=== PATIENT | male | born 1960 | race American Indian/Alaskan Native ===

== ENCOUNTER 2016-10-12 00:08 | Emergency (ER) | payer MEDICARE, OTHER ==
[2016-10-12 02:38] LABS: Hematocrit 31.5 % (35.5-45.6); Hemoglobin 10.2 gm/dl (11.8-15.2); Mean Corpuscular HGB Conc 32 % (32-34); Mean Corpuscular Hemoglobin 26 pg (28-32); Mean Corpuscular Volume 81 fl (84-94); Platelet Count 388 K/mm3 (140-440); Red Blood Count 3.87 M/mm3 (3.65-5.03); Red Cell Distribution Width 15.6 % (13.2-15.2); White Blood Count 6.9 K/mm3 (4.5-11.0)
[2016-10-12 03:07] LABS: Anion Gap 12 mmol/L; Blood Urea Nitrogen 18 mg/dL (9-20); Calcium 8.9 mg/dL (8.4-10.2); Carbon Dioxide 33 mmol/L (22-30); Chloride 97.3 mmol/L (98-107); Glucose 92 mg/dL (75-100); Potassium 3.6 mmol/L (3.6-5.0); Sodium 139 mmol/L (137-145)
[2016-10-12 03:37] LABS: Bilirubin,Urine Negative (Negative); Blood,Urine Negative (Negative); Ketones,Urine Negative (Negative); Leukocyte Esterase,Urine Negative (Negative); Nitrite,Urine Negative (Negative); Urobilinogen,Urine > 0.2 mg/dL (<2.0)
[2016-10-12 03:38] LABS: Mucus,Urine 2+ /HPF
[2016-10-12 04:13] VITALS: BP 125/79
[2016-10-12 05:09] LABS: Anisocytosis Few; Basophils % (Manual) 0 % (0.0-1.8); Blastocytes % (Manual) 0 %; Diff Status Complete
== END 2016-10-12 02:30 | disposition left against medical advice (07) ==
LOC: ED 00:08
DX: R60.9 Edema, unspecified (principal); Z53.21 Procedure and treatment not carried out due to patient leaving prior to being seen by health care provider
CPT/HCPCS: 36415; 80048; 81001; 85007; 85025

== ENCOUNTER 2016-10-12 19:00 | Emergency (ER) | payer MEDICARE, OTHER | END 2016-10-12 20:30 | disposition left against medical advice (07) | LOC: ED 19:00 | DX: Z53.21 Procedure and treatment not carried out due to patient leaving prior to being seen by health care provider (principal) ==

== ENCOUNTER 2016-10-13 07:51 | Emergency (ER) | payer MEDICARE, OTHER ==
[2016-10-13 08:38] LABS: Basophils % (Auto) 0.3 % (0.0-1.8); Hematocrit 32.5 % (35.5-45.6); Hemoglobin 10.9 gm/dl (11.8-15.2); Mean Corpuscular HGB Conc 34 % (32-34); Mean Corpuscular Hemoglobin 27 pg (28-32); Mean Corpuscular Volume 81 fl (84-94); Platelet Count 405 K/mm3 (140-440); Red Blood Count 4.02 M/mm3 (3.65-5.03); Red Cell Distribution Width 15.4 % (13.2-15.2); White Blood Count 5.9 K/mm3 (4.5-11.0)
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
[2016-10-13 08:55] LABS: Blood Urea Nitrogen 10 mg/dL (9-20); Calcium 8.8 mg/dL (8.4-10.2); Carbon Dioxide 24 mmol/L (22-30); Chloride 99.8 mmol/L (98-107); Glucose 114 mg/dL (75-100); Potassium 3.5 mmol/L (3.6-5.0); Sodium 139 mmol/L (137-145)
[2016-10-13 09:18] LABS: Anion Gap 19 mmol/L
[2016-10-13 10:54] LABS: Urine Drugs of Abuse Note Disclamer
[2016-10-13 11:08] LABS: Bilirubin,Urine NEG (Negative); Blood,Urine SM (Negative); Ketones,Urine TR mg/dL (Negative); Leukocyte Esterase,Urine NEG (Negative); Nitrite,Urine NEG (Negative); Protein,Urine <15 mg/dL mg/dL (Negative); Urobilinogen,Urine < 2.0 mg/dL (<2.0)
[2016-10-13 11:33] LABS: WBC,Urine < 1.0 /HPF (0.0-6.0)
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
[2016-10-14] MEDS ORDERED: GEODON IM ONE (07:42)
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
[2016-10-14] MEDS: RisperDAL PO SCH (21:54)
[2016-10-15] MEDS ORDERED: FLEXERIL ONE (10:10)
[2016-10-15] MEDS ORDERED: FLEXERIL PO ONE (10:14)
[2016-10-15] MEDS ORDERED: LASIX ONE (12:54)
[2016-10-15] MEDS ORDERED: LASIX PO ONE (12:58)
--- NOTE | 2016-10-15 17:22 | Progress Note ---
Subjective - Reason for Consult Consult date: 10/15/16 Reason for consult: Psychiatry Follow-up - Chief Complaint Chief complaint: "It's the buses" 56-year-old male in the emergency department. Today patient is calm during assessment. He wanted to talk about the buses he saw pass his room. He stated that these buses is his ride home from the hospital. I had to redirect the patient multiple times during the conversation. He denies SI/HI's when asked. He was observed eating his breakfast during our conversation. Also, patient has 3+ pitting edema (bilateral LEs). He could not tell me about the edema, other than his legs hurt. Patient is a poor historian. Mental Status Exam - Vital signs Last Vital Signs Temp 98.3 F 10/15/16 09:30 Pulse 98 H 10/15/16 09:30 Resp 16 10/15/16 09:30 BP 155/85 10/15/16 09:30 Pulse Ox 100 10/15/16 09:30 - Exam Narrative exam: MSE: Appearance: calm Behavior: regular eye contact Speech: regular rate and tone Mood: "okay" Affect: labile Thought Process: tangential Thought Content: denies SI/HI's and AVH's, delusional, disorganize Motor Activity: lying in bed Cognition: A/Ox 2 Insight: limited Judgment: limited Assessment and Plan Impression: Psychosis is likely, patient is disorganized, delusional with lability mood. Substances do not appear to be a factor in this case but it is possible. Today patient is calm during assessment. Recommendation/Plan: Continue 1013 with placement to inpatient psy services once determined medically clear. Continue Risperdal 0.5 mg PO HS for mood/ psychotic symptoms. The patient has 3+ pitting edema (bilateral LEs), it's undetermined if this patient is medically stable for transfer to inpatient psy services.
[2016-10-15] MEDS: RisperDAL PO SCH (22:25)
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
[2016-10-16] MEDS: RisperDAL PO SCH (22:08)
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
[2016-10-17] MEDS: RisperDAL PO SCH (21:55)
--- NOTE | 2016-10-18 14:05 | Progress Note ---
Subjective - Reason for Consult Consult date: 10/18/16 Reason for consult: Psychiatry Follow-up - Chief Complaint Chief complaint: "I should have left yesterday" 56-year-old male in the emergency department. Today patient is calm and cooperative. He stated that he is homeless, but have money to get himself a hotel. He stated that he uses the [facility] for his healthcare. He denies lower extremity pain. He denies SI/HI's, AVH's, and depression symptoms. He denies any suicidal attempts recently or in the past. Mental Status Exam - Vital signs Last Vital Signs Temp 98.2 F 10/17/16 19:55 Pulse 72 10/17/16 19:55 Resp 18 10/18/16 12:31 BP 163/79 10/17/16 19:55 Pulse Ox 18 L 10/18/16 12:31 - Exam Narrative exam: MSE: Appearance: calm Behavior: regular eye contact Speech: regular rate and tone Mood: "well" Affect: congruent to mood Thought Process: linear Thought Content: denies SI/HI's and AVH's Motor Activity: lying in bed Cognition: A/Ox 3 Insight: fair Judgment: fair Impression: Psychosis is likely, patient is disorganized, delusional with lability mood. Substances do not appear to be a factor in this case but it is possible. Today patient is calm, but delusional during assessment. Recommendation/Plan: Continue 1013 with placement to inpatient psy services once determined medically clear. Modify Risperdal to 1 mg Po HS for for mood/ psychotic symptoms. Patient's LE Edema (1+). If ER recommend outpatient follow- up and the patient is appropriate for discharge, he can be transferred to inpatient psy services. Assessment and Plan Impression: Today patient is calm and cooperative. He denies SI/HI's and AVH's. Patient is no threat to self or others. Recommendation/Plan: Rescind 1013 per yesterday psy note. Continue Risperdal 1 mg PO HS. Patient can can [facility].
[2016-10-18 16:37] VITALS: BP 126/86
== END 2016-10-18 18:47 | disposition home or self-care (01) ==
LOC: EEVIPCON 07:51 → ED 07:51
DX: F23 Brief psychotic disorder (principal); I10 Essential (primary) hypertension; E11.9 Type 2 diabetes mellitus without complications; E78.5 Hyperlipidemia, unspecified
CPT/HCPCS: 36415; 80048; 80307; 81001; 85025; 96372; 99284; G0480; J3486; 80320

== ENCOUNTER 2016-10-28 23:52 | Emergency (ER) | payer MEDICARE, OTHER | END 2016-10-28 23:53 | disposition left against medical advice (07) | LOC: ED 23:52 | DX: M79.1 Myalgia (principal); Z53.21 Procedure and treatment not carried out due to patient leaving prior to being seen by health care provider ==

== ENCOUNTER 2018-06-05 17:45 | Inpatient (IN) | payer MEDICARE, OTHER ==
--- NOTE | 2018-06-05 18:19 | Emergency Department Report ---
Blank Doc - Documentation Documentation: This is a 57-year-old male that presents with stiffness and weakness. Patient is also c/o of generalized pain as well. Patient stated is out of his metformin for 2 weeks. This initial assessment/diagnostic orders/clinical plan/treatment(s) is/are subject to change based on patient's health status, clinical progression and re- assessment by fellow clinical providers in the ED. Further treatment and workup at subsequent clinical providers discretion. Patient/guardians urged not to elope from the ED as their condition may be serious if not clinically assessed and managed. Initial orders include: 1- Patient sent to MAIN ED for further evaluation and treatment 2- Labs 3- UA
[2018-06-05 18:53] LABS: Basophils % (Auto) 0.5 % (0.0-1.8); Eosinophils # (Auto) 0.1 K/mm3 (0.0-0.4); Eosinophils % (Auto) 1.6 % (0.0-4.3); Hematocrit 44.7 % (35.5-45.6); Hemoglobin 14.7 gm/dl (11.8-15.2); Lymphocytes # (Auto) 2.5 K/mm3 (1.2-5.4); Lymphocytes % (Auto) 28.6 % (13.4-35.0); Mean Corpuscular HGB Conc 33 % (32-34); Mean Corpuscular Volume 86 fl (84-94); Monocytes # (Auto) 0.7 K/mm3 (0.0-0.8); Monocytes % (Auto) 8.1 % (0.0-7.3); Platelet Count 358 K/mm3 (140-440); Red Cell Distribution Width 13.6 % (13.2-15.2)
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
[2018-06-05 19:25] LABS: Alanine Aminotransferase 9 units/L (7-56); Albumin 4.2 g/dL (3.9-5); BUN/Creatinine Ratio 19; Blood Urea Nitrogen 15 mg/dL (9-20); Calcium 9.4 mg/dL (8.4-10.2); Hemolysis Index 6
[2018-06-05] MEDS ORDERED: D50W (25GM) Syringe IV PRN (19:39)
[2018-06-05] MEDS ORDERED: NACL 0.9% 1000 ML 1,000 ML IV ONE (19:39)
[2018-06-05 19:45] LABS: Bilirubin,Urine NEG (Negative); Blood,Urine NEG (Negative); Color,Urine Straw (Yellow); Protein,Urine <15 mg/dL mg/dL (Negative); Urobilinogen,Urine < 2.0 mg/dL (<2.0)
[2018-06-05] MEDS ORDERED: MAXIPIME/NS 2 GM/100 ML 2 GM/100 ML BAG IV ONE (19:54)
[2018-06-05] MEDS ORDERED: D5W/0.45% NACL/KCL 20 MEQ 20 MEQ/1,000 ML BAG IV SCH (20:00)
[2018-06-05] MEDS ORDERED: HumuLIN R 100 UNITS in NACL 0.9% 99 ML IV SCH (20:30)
[2018-06-05 20:31] LABS: Creatine Kinase MB 4.5 ng/mL (0.0-4.0)
[2018-06-05 21:50] LABS: BUN/Creatinine Ratio 23; Blood Urea Nitrogen 14 mg/dL (9-20); Calcium 8.5 mg/dL (8.4-10.2); Hemolysis Index 4
[2018-06-05] MEDS ORDERED: NACL 0.9% 1000 ML 1,000 ML IV SCH ×2 (23:00→23:45)
[2018-06-05] MEDS ORDERED: D5NS 1,000 ML IV SCH (23:45)
[2018-06-05 23:57] LABS: BUN/Creatinine Ratio 20; Blood Urea Nitrogen 14 mg/dL (9-20); Calcium 8.6 mg/dL (8.4-10.2); Hemolysis Index 13
[2018-06-06 01:44] LABS: BUN/Creatinine Ratio 23; Blood Urea Nitrogen 14 mg/dL (9-20); Calcium 8.6 mg/dL (8.4-10.2); Hemolysis Index 6
[2018-06-06 05:09] LABS: BUN/Creatinine Ratio 23; Blood Urea Nitrogen 14 mg/dL (9-20); Calcium 8.6 mg/dL (8.4-10.2); Hemolysis Index 12
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
[2018-06-06] MEDS: HumaLOG SUB-Q SCH ×4 (10:25→23:58)
[2018-06-06] MEDS: NACL 0.9% 1000 ML 1,000 ML IV SCH (10:25)
--- NOTE | 2018-06-06 11:36 | Consultation ---
History of Present Illness Consult date: 06/06/18 Requesting physician: AMMON MALAVE III Reason for consult: other (DKA) History of present illness: PULMONARY/CCM CONSULT NOTE (Full dictation # [id number]) Please see dictated notes for full details Medications and Allergies Allergies Allergy/AdvReac Type Severity Reaction Status Date / Time No Known Allergies Allergy Verified 06/05/18 17:46 Home Medications Medication Instructions Recorded Confirmed Last Taken Type risperiDONE [RisperDAL] 1 mg PO QHS #60 tablet 10/18/16 Unknown Rx Active Meds: Active Medications Dextrose (D50w (25gm) Syringe) 0 ml IV ONCE PRN PRN Reason: Hypoglycemia Dextrose/Sodium Chloride (D5ns) 1,000 mls @ 125 mls/hr IV DIRECT SAUNDRA Last Infusion: 06/06/18 10:26 Dose: 0 mls/hr Documented by: Sodium Chloride (Nacl 0.9% 1000 Ml) 1,000 mls @ 75 mls/hr IV DIRECT SAUNDRA Last Admin: 06/06/18 10:25 Dose: 75 mls/hr Documented by: Insulin Human Lispro (Humalog) 0 unit SUB-Q Q4HR SAUNDRA; Protocol Last Admin: 06/06/18 10:25 Dose: Not Given Documented by: Physical Examination Vital signs: Vital Signs Temp Pulse Resp BP Pulse Ox 98.5 F 103 H 16 109/77 97 06/05/18 18:17 06/05/18 18:17 06/05/18 18:17 06/05/18 18:17 06/05/18 18:17 Results - Laboratory Findings CBC and BMP: 06/05/18 18:36 06/06/18 04:11 Abnormal lab findings: Abnormal Labs 06/05/18 06/05/18 06/05/18 18:31 18:36 18:36 RBC 5.20 H [place] % (Auto) 8.1 H VBG pH Sodium 132 L Potassium Chloride 92.8 L Carbon Dioxide 20 L Creatinine Glucose 414 H POC Glucose 348 H Alkaline Phosphatase 185 H CK-MB (CK-2) Ur Specific [place] Urine WBC (Auto) 06/05/18 06/05/18 06/05/18 18:36 19:26 19:53 RBC [place] % (Auto) VBG pH 7.281 L Sodium Potassium Chloride Carbon Dioxide Creatinine Glucose POC Glucose Alkaline Phosphatase CK-MB (CK-2) 4.5 H Ur Specific [place] 1.031 H Urine WBC (Auto) 12.0 H 06/05/18 06/05/18 06/05/18 21:26 21:56 23:07 RBC [place] % (Auto) VBG pH Sodium 134 L Potassium Chloride 97.3 L Carbon Dioxide 16 L Creatinine 0.6 L Glucose 355 H POC Glucose 314 H 315 H Alkaline Phosphatase CK-MB (CK-2) Ur Specific [place] Urine WBC (Auto) 06/05/18 06/05/18 06/06/18 23:26 23:51 00:57 RBC [place] % (Auto) VBG pH Sodium 135 L Potassium Chloride Carbon Dioxide 20 L Creatinine 0.7 L Glucose 322 H POC Glucose 437 H 262 H Alkaline Phosphatase CK-MB (CK-2) Ur Specific [place] Urine WBC (Auto) 06/06/18 06/06/18 06/06/18 01:14 02:19 03:01 RBC [place] % (Auto) VBG pH Sodium Potassium 3.1 L Chloride Carbon Dioxide 21 L Creatinine 0.6 L Glucose 219 H POC Glucose 139 H 112 H Alkaline Phosphatase CK-MB (CK-2) Ur Specific [place] Urine WBC (Auto) 06/06/18 06/06/18 06/06/18 04:10 04:11 05:00 RBC [place] % (Auto) VBG pH Sodium Potassium 3.4 L Chloride Carbon Dioxide Creatinine 0.6 L Glucose 115 H POC Glucose 161 H 133 H Alkaline Phosphatase CK-MB (CK-2) Ur Specific [place] Urine WBC (Auto) 06/06/18 06/06/18 06/06/18 06:07 06:44 08:20 RBC [place] % (Auto) VBG pH Sodium Potassium Chloride Carbon Dioxide Creatinine Glucose POC Glucose 115 H 118 H 132 H Alkaline Phosphatase CK-MB (CK-2) Ur Specific [place] Urine WBC (Auto) 06/06/18 06/06/18 09:16 10:26 RBC [place] % (Auto) VBG pH Sodium Potassium Chloride Carbon Dioxide Creatinine Glucose POC Glucose 152 H 116 H Alkaline Phosphatase CK-MB (CK-2) Ur Specific [place] Urine WBC (Auto)
[2018-06-06 14:17] LABS: BUN/Creatinine Ratio 19; Blood Urea Nitrogen 13 mg/dL (9-20); Calcium 8.2 mg/dL (8.4-10.2); Hemolysis Index 7
[2018-06-06] MEDS ORDERED: HumaLOG SUB-Q ONE (14:27)
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
[2018-06-06 20:04] LABS: BUN/Creatinine Ratio 18; Blood Urea Nitrogen 11 mg/dL (9-20); Calcium 8.2 mg/dL (8.4-10.2); Hemolysis Index 7
[2018-06-07] MEDS: NACL 0.9% 1000 ML 1,000 ML IV SCH ×2 (00:02→17:35)
[2018-06-07] MEDS: HumaLOG SUB-Q SCH ×4 (04:05→13:56)
[2018-06-07 05:56] LABS: BUN/Creatinine Ratio 20; Blood Urea Nitrogen 10 mg/dL (9-20); Calcium 8.2 mg/dL (8.4-10.2); Hemolysis Index 4
[2018-06-07] MEDS ORDERED: IBUPROFEN PO PRN (09:53)
--- NOTE | 2018-06-07 12:57 | Progress Note ---
Assessment and Plan - Patient Problems (1) DKA (diabetic ketoacidoses) Current Visit: Yes Status: Acute Qualifiers: Diabetes mellitus type: type 2 Diabetes mellitus complication detail: without coma Qualified Code(s): E11.10 - Type 2 diabetes mellitus with ketoacidosis without coma Plan to address problem: Stop insulin drip ACcucheks q4 Transfer to [facility] High dose s/s coverage Diabetic education Counselled about need for Insulin bid at home [facility] needs a local [facility] (2) Hypokalemia Current Visit: Yes Status: Acute Plan to address problem: Supplemented (3) DVT prophylaxis Current Visit: Yes Status: Acute Plan to address problem: On Lovenox and GI prophylaxis Subjective Date of service: 06/07/18 Principal diagnosis: DKA Interval history: Glucose levels better Objective - Constitutional Vitals: Vital Signs - 12hr 06/07/18 06/07/18 06/07/18 01:00 01:10 01:20 Temperature Pulse Rate 89 90 92 H Pulse Rate [ From Monitor] Respiratory 15 21 14 Rate Blood Pressure 107/66 102/67 107/66 O2 Sat by Pulse 95 95 96 Oximetry 06/07/18 06/07/18 06/07/18 01:30 01:40 01:50 Temperature Pulse Rate 92 H 91 H 88 Pulse Rate [ From Monitor] Respiratory 20 19 17 Rate Blood Pressure 107/66 107/66 107/66 O2 Sat by Pulse 95 97 95 Oximetry 06/07/18 06/07/18 06/07/18 02:00 02:10 02:20 Temperature Pulse Rate 89 90 88 Pulse Rate [ From Monitor] Respiratory 15 20 18 Rate Blood Pressure 88/63 107/66 107/66 O2 Sat by Pulse 96 96 96 Oximetry 06/07/18 06/07/18 06/07/18 02:30 02:40 02:50 Temperature Pulse Rate 85 85 87 Pulse Rate [ From Monitor] Respiratory 14 21 18 Rate Blood Pressure 107/66 107/66 107/66 O2 Sat by Pulse 96 97 95 Oximetry 06/07/18 06/07/18 06/07/18 03:00 03:10 03:20 Temperature Pulse Rate 87 86 90 Pulse Rate [ From Monitor] Respiratory 18 13 17 Rate Blood Pressure 100/66 96/64 96/64 O2 Sat by Pulse 95 95 95 Oximetry 06/07/18 06/07/18 06/07/18 03:30 03:40 03:50 Temperature Pulse Rate 85 87 82 Pulse Rate [ From Monitor] Respiratory 19 20 14 Rate Blood Pressure 96/64 96/64 96/64 O2 Sat by Pulse 94 95 97 Oximetry 06/07/18 06/07/18 06/07/18 04:00 04:10 04:20 Temperature 98.3 F Pulse Rate 86 87 87 Pulse Rate [ 88 From Monitor] Respiratory 18 15 20 Rate Blood Pressure 96/66 96/66 96/66 O2 Sat by Pulse 94 95 96 Oximetry 06/07/18 06/07/18 06/07/18 04:30 04:40 04:50 Temperature Pulse Rate 88 86 87 Pulse Rate [ From Monitor] Respiratory 17 20 21 Rate Blood Pressure 96/66 96/66 96/66 O2 Sat by Pulse 94 95 95 Oximetry 06/07/18 06/07/18 06/07/18 05:00 05:10 05:20 Temperature Pulse Rate 84 89 90 Pulse Rate [ From Monitor] Respiratory 13 13 11 L Rate Blood Pressure 97/62 97/62 96/66 O2 Sat by Pulse 94 97 97 Oximetry 06/07/18 06/07/18 06/07/18 05:30 05:40 05:50 Temperature Pulse Rate 86 86 85 Pulse Rate [ From Monitor] Respiratory 16 17 14 Rate Blood Pressure 96/66 96/66 96/66 O2 Sat by Pulse 95 96 97 Oximetry 06/07/18 06/07/18 06/07/18 06:00 06:10 06:20 Temperature Pulse Rate 83 81 83 Pulse Rate [ From Monitor] Respiratory 16 17 18 Rate Blood Pressure 105/67 105/67 105/67 O2 Sat by Pulse 96 96 96 Oximetry 06/07/18 06/07/18 06/07/18 06:30 06:40 06:50 Temperature Pulse Rate 81 81 89 Pulse Rate [ From Monitor] Respiratory 16 17 16 Rate Blood Pressure 105/67 105/67 105/67 O2 Sat by Pulse 96 96 97 Oximetry 06/07/18 06/07/18 06/07/18 07:00 07:10 07:20 Temperature Pulse Rate 86 84 83 Pulse Rate [ From Monitor] Respiratory 19 13 14 Rate Blood Pressure 97/64 97/64 97/64 O2 Sat by Pulse 94 95 96 Oximetry 06/07/18 06/07/18 06/07/18 07:30 07:40 07:50 Temperature Pulse Rate 82 85 87 Pulse Rate [ From Monitor] Respiratory 16 19 16 Rate Blood Pressure 97/64 97/64 97/64 O2 Sat by Pulse 96 95 96 Oximetry 06/07/18 06/07/18 06/07/18 08:00 08:10 08:20 Temperature 97.2 F L Pulse Rate 83 78 81 Pulse Rate [ 88 From Monitor] Respiratory 15 15 13 Rate Blood Pressure 99/61 99/61 99/61 O2 Sat by Pulse 93 95 95 Oximetry 06/07/18 06/07/18 06/07/18 08:30 08:40 08:50 Temperature Pulse Rate 105 H 86 86 Pulse Rate [ From Monitor] Respiratory 11 L 17 17 Rate Blood Pressure 99/61 99/61 99/61 O2 Sat by Pulse 96 94 94 Oximetry 06/07/18 06/07/18 06/07/18 09:00 09:10 09:20 Temperature Pulse Rate 89 90 89 Pulse Rate [ From Monitor] Respiratory 19 19 16 Rate Blood Pressure 89/56 89/56 89/56 O2 Sat by Pulse 93 95 96 Oximetry 06/07/18 06/07/18 06/07/18 09:30 09:40 09:50 Temperature Pulse Rate 88 88 89 Pulse Rate [ From Monitor] Respiratory 19 15 16 Rate Blood Pressure 89/56 89/56 89/56 O2 Sat by Pulse 97 96 96 Oximetry General appearance: Present: no acute distress, well-nourished - EENT Eyes: PERRL, EOM intact ENT: hearing intact, clear oral mucosa Ears: bilateral: normal - Neck Neck: supple, normal ROM - Respiratory Respiratory effort: normal Respiratory: bilateral: CTA - Breasts Breasts: normal - Cardiovascular Heart rate: 78 Rhythm: regular Heart Sounds: Present: S1 & S2. Absent: gallop, rub Extremities: no ischemia, pulses intact, No edema, normal color, Full ROM - Gastrointestinal General gastrointestinal: Present: soft, non-tender, non-distended, normal bowel sounds - Genitourinary Male genitourinary: normal - Integumentary Integumentary: clear, warm, dry - Musculoskeletal Musculoskeletal: 1, strength equal bilaterally - Neurologic Neurologic: moves all extremities - Psychiatric Psychiatric: memory intact, appropriate mood/affect, intact judgment & insight - Labs CBC & Chem 7: 06/05/18 18:36 03/09/19 04:34 Labs: Abnormal lab results 06/06/18 06/06/18 06/06/18 Range/Units 13:23 14:19 16:30 Sodium (137-145) mmol/L Potassium (3.6-5.0) mmol/L Carbon Dioxide 21 L (22-30) mmol/L Creatinine 0.7 L (0.8-1.5) mg/dL Glucose 234 H (75-100) mg/dL POC Glucose 317 H 291 H (70-105) Calcium 8.2 L (8.4-10.2) mg/dL 06/06/18 06/06/18 06/07/18 Range/Units 19:10 22:17 01:37 Sodium 133 L (137-145) mmol/L Potassium (3.6-5.0) mmol/L Carbon Dioxide (22-30) mmol/L Creatinine 0.6 L (0.8-1.5) mg/dL Glucose 412 H (75-100) mg/dL POC Glucose 243 H 225 H (70-105) Calcium 8.2 L (8.4-10.2) mg/dL 06/07/18 06/07/18 06/07/18 Range/Units 04:34 07:17 10:08 Sodium (137-145) mmol/L Potassium 3.2 L (3.6-5.0) mmol/L Carbon Dioxide 21 L (22-30) mmol/L Creatinine 0.5 L (0.8-1.5) mg/dL Glucose 212 H (75-100) mg/dL POC Glucose 258 H 217 H (70-105) Calcium 8.2 L (8.4-10.2) mg/dL 06/07/18 Range/Units 12:17 Sodium (137-145) mmol/L Potassium (3.6-5.0) mmol/L Carbon Dioxide (22-30) mmol/L Creatinine (0.8-1.5) mg/dL Glucose (75-100) mg/dL POC Glucose 279 H (70-105) Calcium (8.4-10.2) mg/dL
[2018-06-07] MEDS ORDERED: K-DUR PO ONE (12:58)
--- NOTE | 2018-06-07 13:13 | Progress Note ---
Assessment and Plan - Patient Problems (1) DKA (diabetic ketoacidoses) Current Visit: Yes Status: Acute Qualifiers: Diabetes mellitus type: type 2 Diabetes mellitus complication detail: without coma Qualified Code(s): E11.10 - Type 2 diabetes mellitus with ketoacidosis without coma Plan to address problem: Stop insulin drip ACcucheks q4 Transfer to [facility] High dose s/s coverage Diabetic education Counselled about need for Insulin bid at home [facility] needs [facility] (2) Hypokalemia Current Visit: Yes Status: Acute Plan to address problem: Supplemented (3) DVT prophylaxis Current Visit: Yes Status: Acute Plan to address problem: On Lovenox and GI prophylaxis Subjective Date of service: 06/07/18 Principal diagnosis: DKA Interval history: Glucose levels better Objective - Constitutional Vitals: Vital Signs - 12hr 06/07/18 06/07/18 06/07/18 01:20 01:30 01:40 Temperature Pulse Rate 92 H 92 H 91 H Pulse Rate [ From Monitor] Respiratory 14 20 19 Rate Blood Pressure 107/66 107/66 107/66 O2 Sat by Pulse 96 95 97 Oximetry 06/07/18 06/07/18 06/07/18 01:50 02:00 02:10 Temperature Pulse Rate 88 89 90 Pulse Rate [ From Monitor] Respiratory 17 15 20 Rate Blood Pressure 107/66 88/63 107/66 O2 Sat by Pulse 95 96 96 Oximetry 06/07/18 06/07/18 06/07/18 02:20 02:30 02:40 Temperature Pulse Rate 88 85 85 Pulse Rate [ From Monitor] Respiratory 18 14 21 Rate Blood Pressure 107/66 107/66 107/66 O2 Sat by Pulse 96 96 97 Oximetry 06/07/18 06/07/18 06/07/18 02:50 03:00 03:10 Temperature Pulse Rate 87 87 86 Pulse Rate [ From Monitor] Respiratory 18 18 13 Rate Blood Pressure 107/66 100/66 96/64 O2 Sat by Pulse 95 95 95 Oximetry 06/07/18 06/07/18 06/07/18 03:20 03:30 03:40 Temperature Pulse Rate 90 85 87 Pulse Rate [ From Monitor] Respiratory 17 19 20 Rate Blood Pressure 96/64 96/64 96/64 O2 Sat by Pulse 95 94 95 Oximetry 06/07/18 06/07/18 06/07/18 03:50 04:00 04:10 Temperature 98.3 F Pulse Rate 82 86 87 Pulse Rate [ 88 From Monitor] Respiratory 14 18 15 Rate Blood Pressure 96/64 96/66 96/66 O2 Sat by Pulse 97 94 95 Oximetry 06/07/18 06/07/18 06/07/18 04:20 04:30 04:40 Temperature Pulse Rate 87 88 86 Pulse Rate [ From Monitor] Respiratory 20 17 20 Rate Blood Pressure 96/66 96/66 96/66 O2 Sat by Pulse 96 94 95 Oximetry 06/07/18 06/07/18 06/07/18 04:50 05:00 05:10 Temperature Pulse Rate 87 84 89 Pulse Rate [ From Monitor] Respiratory 21 13 13 Rate Blood Pressure 96/66 97/62 97/62 O2 Sat by Pulse 95 94 97 Oximetry 06/07/18 06/07/18 06/07/18 05:20 05:30 05:40 Temperature Pulse Rate 90 86 86 Pulse Rate [ From Monitor] Respiratory 11 L 16 17 Rate Blood Pressure 96/66 96/66 96/66 O2 Sat by Pulse 97 95 96 Oximetry 06/07/18 06/07/18 06/07/18 05:50 06:00 06:10 Temperature Pulse Rate 85 83 81 Pulse Rate [ From Monitor] Respiratory 14 16 17 Rate Blood Pressure 96/66 105/67 105/67 O2 Sat by Pulse 97 96 96 Oximetry 06/07/18 06/07/18 06/07/18 06:20 06:30 06:40 Temperature Pulse Rate 83 81 81 Pulse Rate [ From Monitor] Respiratory 18 16 17 Rate Blood Pressure 105/67 105/67 105/67 O2 Sat by Pulse 96 96 96 Oximetry 06/07/18 06/07/18 06/07/18 06:50 07:00 07:10 Temperature Pulse Rate 89 86 84 Pulse Rate [ From Monitor] Respiratory 16 19 13 Rate Blood Pressure 105/67 97/64 97/64 O2 Sat by Pulse 97 94 95 Oximetry 06/07/18 06/07/18 06/07/18 07:20 07:30 07:40 Temperature Pulse Rate 83 82 85 Pulse Rate [ From Monitor] Respiratory 14 16 19 Rate Blood Pressure 97/64 97/64 97/64 O2 Sat by Pulse 96 96 95 Oximetry 06/07/18 06/07/18 06/07/18 07:50 08:00 08:10 Temperature 97.2 F L Pulse Rate 87 83 78 Pulse Rate [ 88 From Monitor] Respiratory 16 15 15 Rate Blood Pressure 97/64 99/61 99/61 O2 Sat by Pulse 96 93 95 Oximetry 06/07/18 06/07/18 06/07/18 08:20 08:30 08:40 Temperature Pulse Rate 81 105 H 86 Pulse Rate [ From Monitor] Respiratory 13 11 L 17 Rate Blood Pressure 99/61 99/61 99/61 O2 Sat by Pulse 95 96 94 Oximetry 06/07/18 06/07/18 06/07/18 08:50 09:00 09:10 Temperature Pulse Rate 86 89 90 Pulse Rate [ From Monitor] Respiratory 17 19 19 Rate Blood Pressure 99/61 89/56 89/56 O2 Sat by Pulse 94 93 95 Oximetry 06/07/18 06/07/18 06/07/18 09:20 09:30 09:40 Temperature Pulse Rate 89 88 88 Pulse Rate [ From Monitor] Respiratory 16 19 15 Rate Blood Pressure 89/56 89/56 89/56 O2 Sat by Pulse 96 97 96 Oximetry 06/07/18 09:50 Temperature Pulse Rate 89 Pulse Rate [ From Monitor] Respiratory 16 Rate Blood Pressure 89/56 O2 Sat by Pulse 96 Oximetry General appearance: Present: no acute distress, well-nourished - EENT Eyes: PERRL, EOM intact ENT: hearing intact, clear oral mucosa Ears: bilateral: normal - Neck Neck: supple, normal ROM - Respiratory Respiratory effort: normal Respiratory: bilateral: CTA - Breasts Breasts: normal - Cardiovascular Rhythm: regular Heart Sounds: Present: S1 & S2. Absent: gallop, rub Extremities: pulses intact, No edema, normal color, Full ROM - Gastrointestinal General gastrointestinal: Present: soft, non-tender, non-distended, normal bowel sounds - Genitourinary Male genitourinary: normal - Integumentary Integumentary: clear, warm, dry - Musculoskeletal Musculoskeletal: 1, strength equal bilaterally - Neurologic Neurologic: moves all extremities - Psychiatric Psychiatric: memory intact, appropriate mood/affect, intact judgment & insight - Labs CBC & Chem 7: 06/05/18 18:36 06/07/18 04:34 Labs: Abnormal lab results 06/06/18 06/06/18 06/06/18 Range/Units 13:23 14:19 16:30 Sodium (137-145) mmol/L Potassium (3.6-5.0) mmol/L Carbon Dioxide 21 L (22-30) mmol/L Creatinine 0.7 L (0.8-1.5) mg/dL Glucose 234 H (75-100) mg/dL POC Glucose 317 H 291 H (70-105) Calcium 8.2 L (8.4-10.2) mg/dL 06/06/18 06/06/18 06/07/18 Range/Units 19:10 22:17 01:37 Sodium 133 L (137-145) mmol/L Potassium (3.6-5.0) mmol/L Carbon Dioxide (22-30) mmol/L Creatinine 0.6 L (0.8-1.5) mg/dL Glucose 412 H (75-100) mg/dL POC Glucose 243 H 225 H (70-105) Calcium 8.2 L (8.4-10.2) mg/dL 06/07/18 06/07/18 06/07/18 Range/Units 04:34 07:17 10:08 Sodium (137-145) mmol/L Potassium 3.2 L (3.6-5.0) mmol/L Carbon Dioxide 21 L (22-30) mmol/L Creatinine 0.5 L (0.8-1.5) mg/dL Glucose 212 H (75-100) mg/dL POC Glucose 258 H 217 H (70-105) Calcium 8.2 L (8.4-10.2) mg/dL 06/07/18 Range/Units 12:17 Sodium (137-145) mmol/L Potassium (3.6-5.0) mmol/L Carbon Dioxide (22-30) mmol/L Creatinine (0.8-1.5) mg/dL Glucose (75-100) mg/dL POC Glucose 279 H (70-105) Calcium (8.4-10.2) mg/dL
--- NOTE | 2018-06-07 15:59 | Progress Note ---
Assessment and Plan Diabetic ketoacidosis. Mild metabolic acidosis. Mild hyponatremia. History of hypertension. Generalized body aches. History of hyperlipidemia. Possible schizoaffective disorder. Tobacco use disorder - started long acting insulin - continue glycemic control with accuchecks and SSI coverage for target BG < 180 mg/dl - Diabetes education - replaced potassium - prn analgesia - tobacco cessation strongly counseled at bedside - continue GI & VTE prophylaxis - PT/OT - transfer to medical floor - continue other care per attending / other consultants ... re-evaluate in am & prn Subjective Date of service: 06/07/18 Principal diagnosis: DKA; Mild metabolic acidosis; Mild hyponatremia; HTN Interval history: Patient is seen today for: Diabetic ketoacidosis; Mild metabolic acidosis; Mild hyponatremia; History of hypertension; Generalized body aches. Seen and examined at bedside; 24hour events reviewed; nursing and respiratory care staff consulted; no adverse overnight events reported to me; doing better clinically; stopped IV insulin therapy; NO N/V/F/C; denies acute chest pains or palpitations Objective Vital Signs - 12hr 06/07/18 06/07/18 06/07/18 04:00 04:10 04:20 Temperature 98.3 F Pulse Rate 86 87 87 Pulse Rate [ 88 From Monitor] Respiratory 18 15 20 Rate Blood Pressure 96/66 96/66 96/66 O2 Sat by Pulse 94 95 96 Oximetry 06/07/18 06/07/18 06/07/18 04:30 04:40 04:50 Temperature Pulse Rate 88 86 87 Pulse Rate [ From Monitor] Respiratory 17 20 21 Rate Blood Pressure 96/66 96/66 96/66 O2 Sat by Pulse 94 95 95 Oximetry 06/07/18 06/07/18 06/07/18 05:00 05:10 05:20 Temperature Pulse Rate 84 89 90 Pulse Rate [ From Monitor] Respiratory 13 13 11 L Rate Blood Pressure 97/62 97/62 96/66 O2 Sat by Pulse 94 97 97 Oximetry 06/07/18 06/07/18 06/07/18 05:30 05:40 05:50 Temperature Pulse Rate 86 86 85 Pulse Rate [ From Monitor] Respiratory 16 17 14 Rate Blood Pressure 96/66 96/66 96/66 O2 Sat by Pulse 95 96 97 Oximetry 06/07/18 06/07/18 06/07/18 06:00 06:10 06:20 Temperature Pulse Rate 83 81 83 Pulse Rate [ From Monitor] Respiratory 16 17 18 Rate Blood Pressure 105/67 105/67 105/67 O2 Sat by Pulse 96 96 96 Oximetry 06/07/18 06/07/18 06/07/18 06:30 06:40 06:50 Temperature Pulse Rate 81 81 89 Pulse Rate [ From Monitor] Respiratory 16 17 16 Rate Blood Pressure 105/67 105/67 105/67 O2 Sat by Pulse 96 96 97 Oximetry 06/07/18 06/07/18 06/07/18 07:00 07:10 07:20 Temperature Pulse Rate 86 84 83 Pulse Rate [ From Monitor] Respiratory 19 13 14 Rate Blood Pressure 97/64 97/64 97/64 O2 Sat by Pulse 94 95 96 Oximetry 06/07/18 06/07/18 06/07/18 07:30 07:40 07:50 Temperature Pulse Rate 82 85 87 Pulse Rate [ From Monitor] Respiratory 16 19 16 Rate Blood Pressure 97/64 97/64 97/64 O2 Sat by Pulse 96 95 96 Oximetry 06/07/18 06/07/18 06/07/18 08:00 08:10 08:20 Temperature 97.2 F L Pulse Rate 83 78 81 Pulse Rate [ 88 From Monitor] Respiratory 15 15 13 Rate Blood Pressure 99/61 99/61 99/61 O2 Sat by Pulse 93 95 95 Oximetry 06/07/18 06/07/18 06/07/18 08:30 08:40 08:50 Temperature Pulse Rate 105 H 86 86 Pulse Rate [ From Monitor] Respiratory 11 L 17 17 Rate Blood Pressure 99/61 99/61 99/61 O2 Sat by Pulse 96 94 94 Oximetry 06/07/18 06/07/18 06/07/18 09:00 09:10 09:20 Temperature Pulse Rate 89 90 89 Pulse Rate [ From Monitor] Respiratory 19 19 16 Rate Blood Pressure 89/56 89/56 89/56 O2 Sat by Pulse 93 95 96 Oximetry 06/07/18 06/07/18 06/07/18 09:30 09:40 09:50 Temperature Pulse Rate 88 88 89 Pulse Rate [ From Monitor] Respiratory 19 15 16 Rate Blood Pressure 89/56 89/56 89/56 O2 Sat by Pulse 97 96 96 Oximetry 06/07/18 06/07/18 06/07/18 10:00 10:10 10:20 Temperature Pulse Rate 87 87 88 Pulse Rate [ From Monitor] Respiratory 14 18 20 Rate Blood Pressure 100/63 100/63 89/56 O2 Sat by Pulse 97 95 94 Oximetry 06/07/18 06/07/18 06/07/18 10:30 10:40 10:50 Temperature Pulse Rate 88 87 83 Pulse Rate [ From Monitor] Respiratory 17 19 17 Rate Blood Pressure 89/56 89/56 89/56 O2 Sat by Pulse 94 94 96 Oximetry 06/07/18 06/07/18 06/07/18 11:00 11:10 11:20 Temperature Pulse Rate 89 87 85 Pulse Rate [ From Monitor] Respiratory 15 18 19 Rate Blood Pressure 109/71 109/71 109/71 O2 Sat by Pulse 96 95 95 Oximetry 06/07/18 06/07/18 06/07/18 11:30 11:40 11:50 Temperature Pulse Rate 80 83 78 Pulse Rate [ From Monitor] Respiratory 16 20 17 Rate Blood Pressure 100/63 100/63 100/63 O2 Sat by Pulse 97 93 95 Oximetry 06/07/18 06/07/18 06/07/18 12:00 12:10 12:20 Temperature 98.2 F Pulse Rate 82 99 H 87 Pulse Rate [ 88 From Monitor] Respiratory 17 17 19 Rate Blood Pressure 117/73 117/73 117/73 O2 Sat by Pulse 95 96 94 Oximetry 06/07/18 06/07/18 06/07/18 12:30 12:40 12:50 Temperature Pulse Rate 91 H 101 H 87 Pulse Rate [ From Monitor] Respiratory 16 16 18 Rate Blood Pressure 117/73 117/73 117/73 O2 Sat by Pulse 94 96 95 Oximetry 06/07/18 06/07/18 06/07/18 13:00 13:10 13:20 Temperature Pulse Rate 90 89 91 H Pulse Rate [ From Monitor] Respiratory 22 20 17 Rate Blood Pressure 126/78 126/78 126/78 O2 Sat by Pulse 97 95 95 Oximetry 06/07/18 06/07/18 06/07/18 13:30 13:40 13:50 Temperature Pulse Rate 90 93 H 90 Pulse Rate [ From Monitor] Respiratory 17 20 21 Rate Blood Pressure 117/73 117/73 117/73 O2 Sat by Pulse 96 94 94 Oximetry 06/07/18 06/07/18 06/07/18 14:00 14:10 14:20 Temperature Pulse Rate 86 84 88 Pulse Rate [ From Monitor] Respiratory 12 18 19 Rate Blood Pressure 128/82 128/82 128/82 O2 Sat by Pulse 97 94 95 Oximetry 06/07/18 06/07/18 14:30 14:40 Temperature Pulse Rate 86 87 Pulse Rate [ From Monitor] Respiratory 20 18 Rate Blood Pressure 128/82 128/82 O2 Sat by Pulse 96 97 Oximetry Constitutional: no acute distress, alert Eyes: non-icteric ENT: oropharynx moist Neck: supple, no lymphadenopathy, no JVD Effort: normal Ascultation: Bilateral: clear, diminished breath sounds Percussion: Bilateral: not dull Cardiovascular: regular rate and rhythm Gastrointestinal: normoactive bowel sounds, soft, non-tender, non-distended Integumentary: normal Extremities: no cyanosis, no edema, pulses normal, no ischemia or petechiae Neurologic: normal mental status, non-focal exam, pupils equal and round, CN II- XII normal Psychiatric: mood appropriate, affect normal CBC and BMP: 06/08/18 05:18 06/08/18 05:18 Abnormal lab findings: Abnormal Labs 06/05/18 06/05/18 06/05/18 18:31 18:36 18:36 RBC 5.20 H Divide % (Auto) 8.1 H VBG pH Sodium 132 L Potassium Chloride 92.8 L Carbon Dioxide 20 L Creatinine Glucose 414 H POC Glucose 348 H Calcium Alkaline Phosphatase 185 H CK-MB (CK-2) Ur Specific [place] Urine WBC (Auto) 06/05/18 06/05/18 06/05/18 18:36 19:26 19:53 RBC Divide % (Auto) VBG pH 7.281 L Sodium Potassium Chloride Carbon Dioxide Creatinine Glucose POC Glucose Calcium Alkaline Phosphatase CK-MB (CK-2) 4.5 H Ur Specific [place] 1.031 H Urine WBC (Auto) 12.0 H 06/05/18 06/05/18 06/05/18 21:26 21:56 23:07 RBC Divide % (Auto) VBG pH Sodium 134 L Potassium Chloride 97.3 L Carbon Dioxide 16 L Creatinine 0.6 L Glucose 355 H POC Glucose 314 H 315 H Calcium Alkaline Phosphatase CK-MB (CK-2) Ur Specific [place] Urine WBC (Auto) 06/05/18 06/05/18 06/06/18 23:26 23:51 00:57 RBC Divide % (Auto) VBG pH Sodium 135 L Potassium Chloride Carbon Dioxide 20 L Creatinine 0.7 L Glucose 322 H POC Glucose 437 H 262 H Calcium Alkaline Phosphatase CK-MB (CK-2) Ur Specific [place] Urine WBC (Auto) 06/06/18 06/06/18 06/06/18 01:14 02:19 03:01 RBC Divide % (Auto) VBG pH Sodium Potassium 3.1 L Chloride Carbon Dioxide 21 L Creatinine 0.6 L Glucose 219 H POC Glucose 139 H 112 H Calcium Alkaline Phosphatase CK-MB (CK-2) Ur Specific [place] Urine WBC (Auto) 06/06/18 06/06/18 06/06/18 04:10 04:11 05:00 RBC Divide % (Auto) VBG pH Sodium Potassium 3.4 L Chloride Carbon Dioxide Creatinine 0.6 L Glucose 115 H POC Glucose 161 H 133 H Calcium Alkaline Phosphatase CK-MB (CK-2) Ur Specific [place] Urine WBC (Auto) 06/06/18 06/06/18 06/06/18 06:07 06:44 08:20 RBC Divide % (Auto) VBG pH Sodium Potassium Chloride Carbon Dioxide Creatinine Glucose POC Glucose 115 H 118 H 132 H Calcium Alkaline Phosphatase CK-MB (CK-2) Ur Specific [place] Urine WBC (Auto) 06/06/18 06/06/18 06/06/18 09:16 10:26 13:23 RBC Divide % (Auto) VBG pH Sodium Potassium Chloride Carbon Dioxide 21 L Creatinine 0.7 L Glucose 234 H POC Glucose 152 H 116 H Calcium 8.2 L Alkaline Phosphatase CK-MB (CK-2) Ur Specific [place] Urine WBC (Auto) 06/06/18 06/06/18 06/06/18 14:19 16:30 19:10 RBC Divide % (Auto) VBG pH Sodium 133 L Potassium Chloride Carbon Dioxide Creatinine 0.6 L Glucose 412 H POC Glucose 317 H 291 H Calcium 8.2 L Alkaline Phosphatase CK-MB (CK-2) Ur Specific [place] Urine WBC (Auto) 06/06/18 06/07/18 06/07/18 22:17 01:37 04:34 RBC Divide % (Auto) VBG pH Sodium Potassium 3.2 L Chloride Carbon Dioxide 21 L Creatinine 0.5 L Glucose 212 H POC Glucose 243 H 225 H Calcium 8.2 L Alkaline Phosphatase CK-MB (CK-2) Ur Specific [place] Urine WBC (Auto) 06/07/18 06/07/18 06/07/18 07:17 10:08 12:17 RBC Divide % (Auto) VBG pH Sodium Potassium Chloride Carbon Dioxide Creatinine Glucose POC Glucose 258 H 217 H 279 H Calcium Alkaline Phosphatase CK-MB (CK-2) Ur Specific [place] Urine WBC (Auto) Allied health notes reviewed: nursing
[2018-06-08] MEDS: HumaLOG SUB-Q SCH ×3 (01:40→13:43)
[2018-06-08 06:20] LABS: Basophils % (Auto) 0.3 % (0.0-1.8); Eosinophils # (Auto) 0.1 K/mm3 (0.0-0.4); Eosinophils % (Auto) 2.3 % (0.0-4.3); Hematocrit 37.1 % (35.5-45.6); Hemoglobin 12.2 gm/dl (11.8-15.2); Lymphocytes % (Auto) 35.5 % (13.4-35.0); Mean Corpuscular HGB Conc 33 % (32-34); Mean Corpuscular Volume 85 fl (84-94); Monocytes # (Auto) 0.7 K/mm3 (0.0-0.8); Monocytes % (Auto) 12.4 % (0.0-7.3); Platelet Count 273 K/mm3 (140-440); Red Blood Count 4.35 M/mm3 (3.65-5.03); Red Cell Distribution Width 13.5 % (13.2-15.2)
[2018-06-08 06:43] LABS: Alanine Aminotransferase 7 units/L (7-56); Albumin 3.2 g/dL (3.9-5); BUN/Creatinine Ratio 14; Blood Urea Nitrogen 7 mg/dL (9-20); Calcium 8.2 mg/dL (8.4-10.2); Hemolysis Index 4
[2018-06-08] MEDS: NACL 0.9% 1000 ML 1,000 ML IV SCH (06:56)
--- NOTE | 2018-06-08 12:59 | Discharge Summary ---
Providers - Providers Date of Admission: 06/05/18 21:15 Date of discharge: 06/08/18 Attending physician: JOHNNY JOEL 06/05/18 21:21 Consult to Physician [CONS] Routine Comment: Answering Service notified @ [id number] Consulting Provider: CECI QUINTANA Physician Instructions: Reason For Exam: icu admit 06/07/18 13:03 Consult to Dietitian/Nutrition [CONS] Routine Physician Instructions: Reason For Exam: Reason for Consult: Nutrition Recommendations Reason for Consult: Diet education [facility] Condition: [facility] Hospital course: - Patient Problems (1) DKA (diabetic ketoacidoses) Current Visit: Yes Status: Acute Qualifiers: Diabetes mellitus type: type 2 Diabetes mellitus complication detail: without coma Qualified Code(s): E11.10 - Type 2 diabetes mellitus with ketoacidosis without coma Plan to address problem: Resolved Doing well Diabetic education done Patient to be discharged on Relion 70/30 20 units sq bid To f.u with [facility]cp [facility] [place] (2) Hypokalemia Current Visit: Yes Status: Acute Plan to address problem: Supplemented Disposition: DC-01 TO HOME OR SELFCARE - Discharge Diagnoses (1) DKA (diabetic ketoacidoses) Status: Acute Qualifiers: Diabetes mellitus type: type 2 Diabetes mellitus complication detail: without coma Qualified Code(s): E11.10 - Type 2 diabetes mellitus with ketoacidosis without coma (2) Hypokalemia Status: Acute (3) DVT prophylaxis Status: Acute Core Measure Documentation - Palliative Care Palliative Care/ Comfort Measures: Not Applicable - Core Measures Any of the following diagnoses?: none Exam - Constitutional Vitals: Temp Pulse Resp BP Pulse Ox 98.1 F 78 18 120/74 98 06/08/18 05:51 06/08/18 05:51 06/08/18 05:51 06/08/18 05:51 06/08/18 05:51 General appearance: Present: no acute distress, well-nourished - EENT Eyes: Present: PERRL ENT: hearing intact, clear oral mucosa - Neck Neck: Present: supple, normal ROM - Respiratory Respiratory effort: normal Respiratory: bilateral: CTA - Cardiovascular Heart rate: 78 Rhythm: regular Heart Sounds: Present: S1 & S2. Absent: rub, click - Extremities Extremities: no ischemia, pulses symmetrical, No edema Peripheral Pulses: within normal limits - Abdominal General gastrointestinal: Present: soft, non-tender, non-distended, normal bowel sounds Male genitourinary: Present: normal - Integumentary Integumentary: Present: clear, warm, dry - Musculoskeletal Musculoskeletal: gait normal, strength equal bilaterally - Psychiatric Psychiatric: appropriate mood/affect, intact judgment & insight - Neurologic Neurologic: CNII-XII intact, moves all extremities Plan Activity: no restrictions Diet: diabetic Follow up with: PRIMARY [facility] [Referring] - 3-5 Days NAKUL HARTMANN MD [Staff Physician] - 7 Days
[2018-06-08 13:00] VITALS: BP 136/88
--- NOTE | 2018-06-08 13:31 | Progress Note ---
Assessment and Plan Patient awake.No complaint of chest pain or shortness of breath or cough. O2 saturation 99% on room air.Patient has heavy history of smoking 1 pack a day x 25 years.Still soming counselled to stop smoking. - Patient Problems (1) DKA (diabetic ketoacidoses) Current Visit: Yes Status: Acute Qualifiers: Diabetes mellitus type: type 2 Diabetes mellitus complication detail: without coma Qualified Code(s): E11.10 - Type 2 diabetes mellitus with ketoacidosis without coma Plan to address problem: Improving. glucose 221. Anion gap 15. Management as per primary care. (2) Noncompliance with medication regimen Current Visit: Yes Status: Acute Plan to address problem: Explained the impiortance adherence to his medications. (3) Tobacco use disorder Current Visit: Yes Status: Acute Plan to address problem: Counselled to stop smoking. Obtaining chest xray PA and Lateral. Subjective Date of service: 06/08/18 Principal diagnosis: DKA; Mild metabolic acidosis; Mild hyponatremia; HTN Interval history: Patient awake.No complaint of chest pain or shortness of breath or cough. O2 saturation 99% on room air.Patient has heavy history of smoking 1 pack a day x 25 years.Still soming counselled to stop smoking. Objective Vital Signs - 12hr 06/08/18 06/08/18 05:51 12:58 Temperature 98.1 F 98.0 F Pulse Rate 78 75 Respiratory 18 16 Rate Blood Pressure 120/74 136/88 O2 Sat by Pulse 98 99 Oximetry Constitutional: no acute distress, alert Eyes: non-icteric ENT: oropharynx moist Neck: supple, no lymphadenopathy Ascultation: Bilateral: diminished breath sounds Cardiovascular: regular rate and rhythm Gastrointestinal: normoactive bowel sounds Integumentary: normal Extremities: no cyanosis, no edema Neurologic: normal mental status, non-focal exam, pupils equal and round, CN II- XII normal Psychiatric: mood appropriate CBC and BMP: 06/08/18 05:18 06/08/18 05:18 Abnormal lab findings: Abnormal Labs 06/05/18 06/05/18 06/05/18 18:31 18:36 18:36 RBC 5.20 H Lymph % (Auto) [place] % (Auto) 8.1 H VBG pH Sodium 132 L Potassium Chloride 92.8 L Carbon Dioxide 20 L BUN Creatinine Glucose 414 H POC Glucose 348 H Hemoglobin A1c Calcium Alkaline Phosphatase 185 H CK-MB (CK-2) Total Protein Albumin Ur Specific [place] Urine WBC (Auto) 06/05/18 06/05/18 06/05/18 18:36 19:26 19:53 RBC Lymph % (Auto) [place] % (Auto) VBG pH 7.281 L Sodium Potassium Chloride Carbon Dioxide BUN Creatinine Glucose POC Glucose Hemoglobin A1c Calcium Alkaline Phosphatase CK-MB (CK-2) 4.5 H Total Protein Albumin Ur Specific [place] 1.031 H Urine WBC (Auto) 12.0 H 06/05/18 06/05/18 06/05/18 21:26 21:56 23:07 RBC Lymph % (Auto) [place] % (Auto) VBG pH Sodium 134 L Potassium Chloride 97.3 L Carbon Dioxide 16 L BUN Creatinine 0.6 L Glucose 355 H POC Glucose 314 H 315 H Hemoglobin A1c Calcium Alkaline Phosphatase CK-MB (CK-2) Total Protein Albumin Ur Specific [place] Urine WBC (Auto) 06/05/18 06/05/18 06/06/18 23:26 23:51 00:57 RBC Lymph % (Auto) [place] % (Auto) VBG pH Sodium 135 L Potassium Chloride Carbon Dioxide 20 L BUN Creatinine 0.7 L Glucose 322 H POC Glucose 437 H 262 H Hemoglobin A1c Calcium Alkaline Phosphatase CK-MB (CK-2) Total Protein Albumin Ur Specific [place] Urine WBC (Auto) 06/06/18 06/06/18 06/06/18 01:14 02:19 03:01 RBC Lymph % (Auto) [place] % (Auto) VBG pH Sodium Potassium 3.1 L Chloride Carbon Dioxide 21 L BUN Creatinine 0.6 L Glucose 219 H POC Glucose 139 H 112 H Hemoglobin A1c Calcium Alkaline Phosphatase CK-MB (CK-2) Total Protein Albumin Ur Specific [place] Urine WBC (Auto) 06/06/18 06/06/18 06/06/18 04:10 04:11 05:00 RBC Lymph % (Auto) [place] % (Auto) VBG pH Sodium Potassium 3.4 L Chloride Carbon Dioxide BUN Creatinine 0.6 L Glucose 115 H POC Glucose 161 H 133 H Hemoglobin A1c Calcium Alkaline Phosphatase CK-MB (CK-2) Total Protein Albumin Ur Specific [place] Urine WBC (Auto) 06/06/18 06/06/18 06/06/18 06:07 06:44 08:20 RBC Lymph % (Auto) [place] % (Auto) VBG pH Sodium Potassium Chloride Carbon Dioxide BUN Creatinine Glucose POC Glucose 115 H 118 H 132 H Hemoglobin A1c Calcium Alkaline Phosphatase CK-MB (CK-2) Total Protein Albumin Ur Specific [place] Urine WBC (Auto) 06/06/18 06/06/18 06/06/18 09:16 10:26 13:23 RBC Lymph % (Auto) [place] % (Auto) VBG pH Sodium Potassium Chloride Carbon Dioxide 21 L BUN Creatinine 0.7 L Glucose 234 H POC Glucose 152 H 116 H Hemoglobin A1c Calcium 8.2 L Alkaline Phosphatase CK-MB (CK-2) Total Protein Albumin Ur Specific [place] Urine WBC (Auto) 06/06/18 06/06/18 06/06/18 14:19 16:30 19:10 RBC Lymph % (Auto) [place] % (Auto) VBG pH Sodium 133 L Potassium Chloride Carbon Dioxide BUN Creatinine 0.6 L Glucose 412 H POC Glucose 317 H 291 H Hemoglobin A1c Calcium 8.2 L Alkaline Phosphatase CK-MB (CK-2) Total Protein Albumin Ur Specific [place] Urine WBC (Auto) 06/06/18 06/07/18 06/07/18 22:17 01:37 04:34 RBC Lymph % (Auto) [place] % (Auto) VBG pH Sodium Potassium 3.2 L Chloride Carbon Dioxide 21 L BUN Creatinine 0.5 L Glucose 212 H POC Glucose 243 H 225 H Hemoglobin A1c Calcium 8.2 L Alkaline Phosphatase CK-MB (CK-2) Total Protein Albumin Ur Specific [place] Urine WBC (Auto) 06/07/18 06/07/18 06/07/18 07:17 10:08 12:17 RBC Lymph % (Auto) [place] % (Auto) VBG pH Sodium Potassium Chloride Carbon Dioxide BUN Creatinine Glucose POC Glucose 258 H 217 H 279 H Hemoglobin A1c Calcium Alkaline Phosphatase CK-MB (CK-2) Total Protein Albumin Ur Specific [place] Urine WBC (Auto) 06/07/18 06/07/18 06/08/18 18:35 21:48 05:18 RBC Lymph % (Auto) 35.5 H [place] % (Auto) 12.4 H VBG pH Sodium Potassium Chloride Carbon Dioxide BUN Creatinine Glucose POC Glucose 367 H 360 H Hemoglobin A1c Calcium Alkaline Phosphatase CK-MB (CK-2) Total Protein Albumin Ur Specific [place] Urine WBC (Auto) 06/08/18 06/08/18 06/08/18 05:18 05:18 08:32 RBC Lymph % (Auto) [place] % (Auto) VBG pH Sodium Potassium 3.5 L Chloride Carbon Dioxide BUN 7 L Creatinine 0.5 L Glucose 221 H POC Glucose 130 H Hemoglobin A1c 12.0 H Calcium 8.2 L Alkaline Phosphatase CK-MB (CK-2) Total Protein 5.5 L D Albumin 3.2 L Ur Specific [place] Urine WBC (Auto)
== END 2018-06-08 15:53 | disposition home or self-care (01) | DRG 638 ==
LOC: ED 17:45 → CC1 21:15 → IMCU 06-06 14:07 → 3A 06-07 16:55
PROVIDERS: ADMIT Internal Medicine; ATTEND Internal Medicine
DX: E11.10 Type 2 diabetes mellitus with ketoacidosis without coma (principal); N39.0 Urinary tract infection, site not specified; E87.1 Hypo-osmolality and hyponatremia; E87.6 Hypokalemia; F17.200 Nicotine dependence, unspecified, uncomplicated; I10 Essential (primary) hypertension; Z91.14 Patient's other noncompliance with medication regimen; Z71.6 Tobacco abuse counseling; Z81.2 Family history of tobacco abuse and dependence
CPT/HCPCS: 36415; 80048; 80053; 81001; 82140; 82550; 82553; 82805; 82962; 83036; 83735; 84100; 84484; 85025; 93005; 93010; 96365; 99291; G0378; J0692; J1815; J7030; J7042

== ENCOUNTER 2018-07-09 23:31 | Emergency (ER) | payer MEDICARE, OTHER ==
[2018-07-10 00:22] LABS: Basophils % (Auto) 0.5 % (0.0-1.8); Eosinophils # (Auto) 0.3 K/mm3 (0.0-0.4); Eosinophils % (Auto) 3.2 % (0.0-4.3); Hematocrit 43.7 % (35.5-45.6); Hemoglobin 14.2 gm/dl (11.8-15.2); Lymphocytes # (Auto) 2.9 K/mm3 (1.2-5.4); Lymphocytes % (Auto) 32.6 % (13.4-35.0); Mean Corpuscular HGB Conc 33 % (32-34); Mean Corpuscular Volume 86 fl (84-94); Monocytes # (Auto) 0.9 K/mm3 (0.0-0.8); Monocytes % (Auto) 9.8 % (0.0-7.3); Platelet Count 316 K/mm3 (140-440); Red Blood Count 5.07 M/mm3 (3.65-5.03); Red Cell Distribution Width 13.2 % (13.2-15.2)
[2018-07-10 00:34] LABS: BUN/Creatinine Ratio 19; Blood Urea Nitrogen 15 mg/dL (9-20); Calcium 9.2 mg/dL (8.4-10.2); Hemolysis Index 62
[2018-07-10] MEDS ORDERED: NACL 0.9% 1000 ML 1,000 ML IV ONE ×2 (02:16→03:47)
[2018-07-10] MEDS ORDERED: HumuLIN R IV ONE ×2 (02:39→03:47)
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
[2018-07-10 05:27] VITALS: BP 105/72
== END 2018-07-10 05:28 | disposition home or self-care (01) ==
LOC: ED 23:31
DX: E11.65 Type 2 diabetes mellitus with hyperglycemia (principal); E11.40 Type 2 diabetes mellitus with diabetic neuropathy, unspecified; I10 Essential (primary) hypertension; E78.5 Hyperlipidemia, unspecified; F17.200 Nicotine dependence, unspecified, uncomplicated; Z79.4 Long term (current) use of insulin
CPT/HCPCS: 36415; 80048; 82805; 82962; 85025; 96361; 96374; 96376; 99284; J7030; J1815

== ENCOUNTER 2018-07-31 14:08 | Emergency (ER) | payer MEDICARE, OTHER ==
[2018-07-31 14:14] VITALS: BP 139/95
--- NOTE | 2018-07-31 14:18 | Emergency Department Report ---
Blank Doc - Documentation Documentation: 57 y/o male comes in for a refill for MEtformin , insulin and pain medication.
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
== END 2018-07-31 14:30 | disposition home or self-care (01) ==
LOC: ED 14:08
DX: E11.9 Type 2 diabetes mellitus without complications (principal); Z76.0 Encounter for issue of repeat prescription
CPT/HCPCS: 99281

== ENCOUNTER 2020-03-28 20:34 | Emergency (ER) | payer MEDICARE, OTHER | END 2020-03-29 03:15 | LOC: ED 20:34 | DX: M54.9 Dorsalgia, unspecified (principal); Z53.21 Procedure and treatment not carried out due to patient leaving prior to being seen by health care provider ==

== ENCOUNTER 2020-05-09 22:25 | Emergency (ER) | payer MEDICARE, OTHER ==
--- NOTE | 2020-05-09 23:38 | Event Note ---
ED Screening Note Date of service: 05/09/20 Time: 23:00 ED Screening Note: Patient is a 59 yo AA male with a h/o HTN, CAD s/p PTCA and NIDDM who presents to the ED with c/o acute onset persistent severe bilateral leg pain and swelling with redness for the last 1 week. Patient states that the pain, swelling and redness of legs have worsened in the last 2 days. Patient denies chest pain, dyspnea, dizziness, fall, traumatic injury, chest pain, nausea, vomiting, headache, fever and chills, cough, wheezing, abdominal pain, traumatic injury. This initial assessment/diagnostic orders/clinical plan/treatment(s) is/are subject to change based on patients health status, clinical progression and re- assessment by fellow clinical providers in the ED. Further treatment and workup at subsequent clinical providers discretion. Patient/guardian urged not to elope from the ED as their condition may be serious if not clinically assessed and managed. Initial orders include: CBC, CMP, EKG, BNP, Doppler Leg US; CXR; Blood culture; Lactic acid
[2020-05-10 00:07] LABS: Basophils % (Auto) 0.3 % (0.0-1.8); Eosinophils # (Auto) 0.4 K/mm3 (0.0-0.4); Eosinophils % (Auto) 5.3 % (0.0-4.3); Hematocrit 29.4 % (35.5-45.6); Hemoglobin 9.8 gm/dl (11.8-15.2); Lymphocytes % (Auto) 25.6 % (13.4-35.0); Mean Corpuscular HGB Conc 33 % (32-34); Mean Corpuscular Volume 86 fl (84-94); Monocytes # (Auto) 0.9 K/mm3 (0.0-0.8); Monocytes % (Auto) 11.1 % (0.0-7.3); Platelet Count 274 K/mm3 (140-440); Red Blood Count 3.43 M/mm3 (3.65-5.03); Red Cell Distribution Width 15.2 % (13.2-15.2)
--- NOTE | 2020-05-10 00:07 | XRay Report ---
CHEST 1 VIEW 05/09/2020 11:37 PM INDICATION / CLINICAL INFORMATION: Leg swelling. COMPARISON: [facility] radiograph dated 08/08/19 FINDINGS: SUPPORT DEVICES: None. HEART / MEDIASTINUM: No significant abnormality. LUNGS / PLEURA: No significant pulmonary or pleural abnormality. No pneumothorax. ADDITIONAL FINDINGS: Healed right humerus fracture. IMPRESSION: 1. No acute findings. Signer Name: Yaa Hedrick MD Signed: 05/10/2020 12:03 AM Workstation Name: [id number]
[2020-05-10 00:08] LABS: Alanine Aminotransferase 32 units/L (7-56); Albumin 3.3 g/dL (3.9-5); Blood Urea Nitrogen 19 mg/dL (9-20); Calcium 8.6 mg/dL (8.4-10.2); Hemolysis Index 0
[2020-05-10 00:10] LABS: BUN/Creatinine Ratio 32
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
[2020-05-10 02:40] VITALS: BP 97/62
== END 2020-05-10 02:42 | disposition home or self-care (01) ==
LOC: ED 22:25
DX: E11.40 Type 2 diabetes mellitus with diabetic neuropathy, unspecified (principal); R60.9 Edema, unspecified; I10 Essential (primary) hypertension; F31.9 Bipolar disorder, unspecified; F17.200 Nicotine dependence, unspecified, uncomplicated; F12.10 Cannabis abuse, uncomplicated; Z98.890 Other specified postprocedural states; Z79.4 Long term (current) use of insulin; Z79.899 Other long term (current) drug therapy
CPT/HCPCS: 36415; 71045; 80053; 82140; 83880; 84484; 85025; 87040; 93970

== ENCOUNTER 2020-05-11 03:28 | Emergency (ER) | payer MEDICARE, OTHER ==
[2020-05-11 05:18] VITALS: BP 166/76
--- NOTE | 2020-05-11 06:44 | Emergency Department Report ---
Chief Complaint: Extremity Injury, Lower Stated Complaint: LEG PAIN - HPI History of Present Illness: Patient 59-year-old male who presents for bilateral lower extremity pain. Patient was seen and treated for peripheral neuropathy on 05/10/2020. Patient was disposed to half-way. States he did not like to half-way return to ED patient denies new complaint. Patient is alert oriented x3. Patient with no acute distress at this time and does not present with an emergency medical condition. - ROS Review of Systems: There is no headache, dizziness, lightheadedness no nausea no vomiting no short shortness of breath no chest pain , no back pain, no fever or chills. - Exam Vital Signs: Vital Signs 05/11/20 03:40 Temperature 97.9 F Pulse Rate 101 H Respiratory 18 Rate Blood Pressure 166/76 O2 Sat by Pulse 99 Oximetry Physical Exam: Patient appears in no acute distress, ENT is normal, lung sounds are clear throughout no wheezing no crackles, CV S1-S2 no rub gallop or murmur, abdomen soft nontender, musculoskeletal distal pulses intact range of motion intact all extremities there is no weakness. Patient with no acute distress. [facility] screening note: Focused history and physical exam performed. Due to findings the following was ordered: Patient does not have an acute emergency medical condition . Patient will follow up with primary care doctor as scheduled. Patient has a his prescription prescriptions for peripheral neuropathy including pain medication. Patient departed ED at this time in stable condition. Patient discussed with doctor:: NAI URBANO (appropriate for [facility] ) ED Medical Decision Making - Medical Decision Making Patient is alert oriented x3 amatory patient does not have an emergency medical condition patient will follow up with primary care doctor in 2 to 3 days as scheduled. ED Disposition for [facility] Clinical Impression: Malingering Chronic leg pain Qualifiers: Laterality: bilateral Qualified Code(s): M79.604 - Pain in right leg; M79.605 - Pain in left leg; G89.29 - Other chronic pain Disposition: -01 TO HOME OR SELFCARE Is pt being admited?: No Does the pt Need Aspirin: No Condition: Stable Instructions: Chronic Pain, Adult Referrals: PRIMARY CARE, [Primary Care Provider] - 3-5 Days Time of Disposition: 06:44
== END 2020-05-11 07:56 | disposition home or self-care (01) ==
LOC: ED 03:28
DX: M79.604 Pain in right leg (principal); M79.605 Pain in left leg; G89.29 Other chronic pain; Z76.5 Malingerer [conscious simulation]